=== PATIENT | female | born 1970 ===

== ENCOUNTER → 2018-07-16 18:33 | Outpatient (REF) | payer OTHER, SELFPAY ==
[2018-07-16 18:54] LABS: Add Manual Diff / Slide Review NO; Basophils Absolute Auto 0 /uL (0-100); Basophils Percent Auto 0.7 % (0-2); Eosinophils Absolute Auto 100 /uL (0-450); Eosinophils Percent Auto 2.8 % (2-4); Hematocrit 38.6 % (36-46); Hemoglobin 12.6 g/dL (12.0-16.0); Lymphocytes Absolute Auto 800 /uL (1100-4500); Mean Corpuscular HGB Conc 32.6 % (30-36); Mean Corpuscular Hemoglobin 28.7 PG (26-34); Mean Corpuscular Volume 87.9 fL (80-100); Monocytes Absolute Auto 300 /uL (0-900); Monocytes Percent Auto 11.5 % (3-14); Neutrophils Absolute Auto 1200 /uL (1500-7000); Platelet Count 241 X10^3/uL (150-400); Red Blood Cell Count 4.39 X10^6/uL (4.0-5.2); Red Cell Distribution Width 16.7 % (11.6-14.8); White Blood Cell Count 2.3 X10^3/uL (4.5-11.0)
[2018-07-16 20:00] LABS: Free T3, Triiodothyronine Free 3.53 pg/mL (2.77-5.27); Free T4, Direct Thyroxine 0.97 ng/dL (0.78-2.19)
[2018-07-16 20:14] LABS: Thyroid Stimulating Hormone 4.63 uIU/mL (0.47-4.68)
[2018-07-21 16:05] LABS: Estradiol 154 pg/mL; Progesterone 0.8 ng/mL
== END ==
LOC: LAB 18:33
PROVIDERS: PCP Specialist; Visit Provider Physician Assistant Medical
DX: E03.9 Hypothyroidism, unspecified (principal); N95.9 Unspecified menopausal and perimenopausal disorder; D50.9 Iron deficiency anemia, unspecified; F43.9 Reaction to severe stress, unspecified
CPT/HCPCS: 36415; 82670; 84144; 84439; 84443; 84481; 85025